=== PATIENT | female | born 1995 | race Caucasian/White ===

== ENCOUNTER 2022-10-17 13:09 | Emergency (ER) | payer MEDICAID ==
[~2022-10-17] VITALS: Ht 154.9 cm; Wt 97.5 kg
[2022-10-17 13:17] VITALS: BP_SYST 128
--- NOTE | 2022-10-17 14:00 | NUR ---
Patient to ER bed 4 for evaluation. Side rails up. Phil BONILLA recieved patient on [facility].
[2022-10-17] MEDS ORDERED: KETOROLAC TROMETHAMINE 30 MG VIAL IM ONE (14:30)
[2022-10-17] MEDS ORDERED: ONDANSETRON 4 MG ODT TAB PO ONE (14:30)
--- NOTE | 2022-10-17 14:30 | NUR ---
Patient's meds given per MD order.
--- NOTE | 2022-10-17 15:00 | NUR ---
Patient resting fopllowing MD mathews.
[2022-10-17] MEDS ORDERED: ONDA-8 TL (16:26)
[2022-10-17] MEDS ORDERED: IBUP-1971 PO (16:26)
--- NOTE | 2022-10-17 16:40 | NUR ---
Patient given written and verbal discharge instructions and verbalizes understanding. ER MD discussed with patient the results and treatment provided. Patient in stable condition. ID arm band removed. Rx of motrin and zofran ODT given. Patient educated on pain management and to follow up with PMD. Pain Scale 5/10. Opportunity for questions provided and answered.
--- NOTE | 2022-10-17 16:46 | NUR ---
Patient gave medicine per MD order. MD came and re evaluated patioent at the time.
== END 2022-10-17 16:40 | disposition home or self-care (01) ==
LOC: SED 13:09
DX: G44.209 Tension-type headache, unspecified, not intractable (principal); R11.0 Nausea; Z79.899 Other long term (current) drug therapy
CPT/HCPCS: 99285; 70450; 76376; 81025; 96372; Q0162; J1885